=== PATIENT | female | born 1955 | race Caucasian/White ===

== ENCOUNTER 2018-06-29 13:40 | Day surgery (SDC) | payer BC ==
[~2018-06-29] VITALS: Ht 162.6 cm; Wt 79.1 kg
[~2018-06-29 13:40] MED LIST: BACTRIM DS 8001 TAB PO; DYRENIUM 50MG C50 MG; GLUCOPHAGE500 MG/TAB PO; PROTONIX20 MG PO; PROZAC 20MG20 MG PO
[2018-06-29] MEDS ORDERED: DYAZIDE 25 MG-31 CAP PO (13:51)
[2018-06-29] MEDS ORDERED: ZOCOR 40MG40 MG PO (13:52)
[2018-06-29] MEDS ORDERED: JANUMXR100-1000 PO (13:52)
[2018-06-29 14:12] VITALS: BP 142/78; PULSE 74; TEMP 98.1
[2018-06-29 14:50] VITALS: BP 126/80; PULSE 86; TEMP 97.9
[2018-06-29 15:05] VITALS: BP 110/68; PULSE 84
== END 2018-06-29 15:30 | disposition home or self-care (01) ==
LOC: SDCO 13:40
DX: Z12.11 Encounter for screening for malignant neoplasm of colon (principal); D12.5 Benign neoplasm of sigmoid colon; K64.0 First degree hemorrhoids; E11.9 Type 2 diabetes mellitus without complications; E78.00 Pure hypercholesterolemia, unspecified; Z90.710 Acquired absence of both cervix and uterus; Z79.84 Long term (current) use of oral hypoglycemic drugs; Z88.6 Allergy status to analgesic agent
CPT/HCPCS: J2250; J3010; J7030

== ENCOUNTER → 2018-08-10 | Outpatient (CLI) | payer BC ==
[~2018-08-10] MED LIST changes: +DYAZIDE 25 MG-31 CAP PO; +JANUMXR100-1000 PO; +ZOCOR 40MG40 MG PO
== END ==
LOC: MC.RAD 08:48
DX: Z12.31 Encounter for screening mammogram for malignant neoplasm of breast (principal)

== ENCOUNTER → 2021-07-24 | Outpatient (CLI) | payer BC | LOC: MC.RAD 14:45 | DX: Z12.31 Encounter for screening mammogram for malignant neoplasm of breast (principal) ==